=== PATIENT | male | born 1950 | race Caucasian/White ===

== ENCOUNTER 2023-05-09 13:10 | Outpatient (CLI) | payer MEDICARE, BC, SELFPAY | END 2023-05-09 13:11 | disposition home or self-care (01) | PROVIDERS: PCP Internal Medicine; Visit Provider Internal Medicine | DX: R53.83 Other fatigue (principal); I10 Essential (primary) hypertension; E78.5 Hyperlipidemia, unspecified; Z12.5 Encounter for screening for malignant neoplasm of prostate | CPT/HCPCS: 80053; 80061; 84153 ==

== ENCOUNTER 2024-06-27 12:35 | Outpatient (CLI) | payer MEDICARE, BC, SELFPAY ==
--- OUTSIDE RECORDS SUMMARY | 2024-06-30 19:36 | XMS_ITS | Clinical Summary ---
Author Organization [employer] [facility] Address [place], [place] [address] Care Team Providers Care Fabric Coating Supervisor Name Role Phone Durga Del Valle MD Primary Care Provider [phone] Allergies Active Allergy Reactions Criticality Noted Date Comments Fish Containing Products Diarrhea Low 07/07/2022 Peanut Butter Flavor Diarrhea Low 07/07/2022 Sunlight Rash 08/21/2018 Itchy, looks like poison frida Medications Medication Sig Dispensed Refills Start Date End Date Status aspirin (ECOTRIN) 81 mg enteric coated tablet Take 1 tablet by mouth once daily with a meal. 0 08/18/2015 Active nitroglycerin (NITROSTAT) 0.[address] 0.4 mg under the tongue every 5 minutes if needed. 07/23/2013 Active clopidogrel (PLAVIX) 75 mg tabletIndications:Hea rt disease Take 1 tablet by mouth once daily. 90 tablet 3 08/21/2018 Active lisinopril (PRINIVIL; ZESTRIL) 5 mg tabletIndications:Hea rt disease,Essential hypertension Take 1 tablet by mouth once daily. 90 tablet 3 08/21/2018 Active metoprolol tartrate (LOPRESSOR) 25 mg tabletIndications:Hea rt disease,Essential hypertension Take 1 tablet by mouth 2 times daily. 180 tablet 3 08/21/2018 Active HYDROcodone-acetamino phen, 7.5-325 mg, (NORCO 7.5-325) 7.5-325 mg per tabletIndications:Chr onic bilateral low back pain, with sciatica presence unspecified,DDD (degenerative disc disease), lumbar,Pain medication agreement Take up to 2 tablets PO twice daily. Continue wean to 3 tabs total daily this month. 120 tablet 04/09/2019 Active albuterol HFA (PRO-AIR; VENTOLIN; PROVENTIL) 90 mcg/actuation inhaler Inhale 2 Puffs by mouth every 6 hours if needed (bronchospasm). Active fluticasone propion-salmeteroL (Advair HFA) 115-21 mcg/actuation inhaler Inhale 2 Puffs by mouth two times daily. Active atorvastatin (LIPITOR) 10 mg tablet Take 4 Tablets (40 mg) by mouth at bedtime. 0 02/03/2023 Active Active Problems Problem Noted Date Diagnosed Date Pneumonia 01/22/2023 Respiratory failure with hypoxia 01/22/2023 Tobacco abuse 08/18/2018 Hypercholesteremia 08/18/2015 Hypertension 08/18/2015 Heart disease 08/18/2015 Overview (08/18/2015): 2 CT, 2011 with 1 stent and Aug 2013 4 stents. On plavix. GERD without esophagitis 08/18/2015 Ankle arthritis 08/18/2015 Cervical arthritis 08/18/2015 DDD (degenerative disc disease), lumbar 08/18/19 16 Overview (08/18/2015): Lumbar MRI done at [facility] December 2014. Multiple findings including L4-5 disc bulge and L5-S1 disc bulge with foraminal narrowing and impingement. Cervical spondylarthritis 08/30/2014 NSTEMI (non-ST elevated myocardial infarction) 0 08/20/2014 DJD (degenerative joint disease), multiple sites 04/19/2014 Overview (08/18/2018): Overview: chronic degenerative shoulder pain, ankle DJD GERD (gastroesophageal reflux disease) 3 Essential (primary) hypertension 07/23/2013 Anxiety 11/17/2012 CAD (coronary artery disease) 11/17/2012 Overview (08/18/2018): Overview: s/p PTCA single stent to [facility] (11/2012) Hyperlipidemia with target LDL less than 70 12/2012 Overview (08/18/2018): Overview: Hyperlipidemia LDL goal < 70 Tobacco use 08/06/2012 Gout 01/27/2012 Encounters Date Type Department Care Team Description 05/09/2024 1:15 PM CDT Office Visit [facility] [address] [place] [phone] Beth Jain, TANK BUILDER HELPER, TOUR COUNSELOR Derm Problem 05/09/2024 Travel from Last 3 Months Immunizations Name Administration Dates Next Due COVID-19 vaccine (Pfizer-Bio NTech 30mcg/0.3mL) 12YO+ BIVALENT PF, MDV 07/26/2022 COVID-19 vaccine (Pfizer-Bio NTech 30mcg/0.3mL) PF, MDV 11/24/2021,07/15/2021 DTP 10/07/1988 Influenza, High-dose Quadriv alent Inactivated 08/04/2022,05/21/2021,07/03/2020 Influenza, IIV3 (Age 6-35 mos) 07/01/2011 Oral Polio Vaccine 10/07/1988 Pneumococcal Poly,23-Valent (Pneumovax) 01/19/20 23 Pneumococcal conj 13-Valent (Prevnar 13) 022 Td (Age >=7 Years) 01/06/1999 Tdap 01/18/2023,07/01/2011,02/22/2011 Family History Medical History Relation Name Comments Good Health Brother Heart Disease Brother 6 stents Down syndrome Daughter Coronary artery disease Father Diabetes Father Heart Disease Father Other Mother Lupus Good Health Sister 1 Good Health Sister 2 ADD / ADHD Son Bipolar disorder Son Anesthesia Problem No Family History Asthma No Family History Cancer-breast No Family History Cancer-colon No Family History Cancer-ovarian No Family History Cancer-prostate No Family History Hypertension No Family History Stroke No Family History Relation Name Status Comments Brother Alive Daughter Alive Father Alive CT in 2017 Maternal Grandfather Maternal Grandmother Mother (Age 68) Paternal Grandfather Paternal Grandmother (Age 97) Sister 1 Alive Sister 2 Alive Son Alive Social History Tobacco Use Types Packs/Day Years Used Date Smoking Tobacco: Former Cigarettes Q uit: 1967 Smokeless Tobacco: Former Chew Alcohol Use Standard Drinks/Week Comments Yes 0 (1 standard drink = 0.6 oz pur e alcohol) 1-2/day- vodka PHQ-2 Answer Date Recorded PHQ-2 Score 0 10/17/2018 Sex and Gender Information Value Date Recorded Sex Assigned at Not on file Gender Identity Not on file Sexual Orientation Not on file Obstetrics History Last Filed Vital Signs Vital Sign Reading Time Taken Comments Blood Pressure 122/78 05/09/2024 1:10 PM CDT Pulse 74 05/09/2024 1:10 PM CDT Temperature 36.1 ??C (97 ??F) 05/09/2024 1:10 PM CDT Respiratory Rate 14 05/09/2024 1:10 PM CDT Oxygen Saturation 96% 05/09/2024 1:10 PM CDT Inhaled Oxygen Concentration - - Weight 99.3 kg (219 lb) 05/09/2024 1:10 PM CDT Height 175.3 cm (5' 9) 05/09/2024 1:10 PM CDT Body Mass Index 32.34 05/09/2024 1:10 PM CDT Plan of Treatment Health Maintenance Due Date Last Done Comments Colonoscopy through age [address] (for lung CA) ag e 50-80 2002 Zoster (shingles) series for age 50+ (1 of 2) 2002 AAA screening age 65-74 2017 Medicare Wellness for age 65+ 08/22/2019 08/21/2018 Depression screening for age 12+ 03/08/2020 03/08/2019, 08/25/2018, 08/21/2018 COVID-19 vaccine series (2023- season) 2024 09/06/2023, 07/26/2022, 11/24/2021, Additional history exists Influenza for age 65+ 04/15/2024 08/04/2022 , 05/21/2021, 07/03/2020 BMI (ht and wt on same day) for age 18+ 05/09/2025 05/09/2024, 02/03/2023, 04/02/2019, Additional history exists Lipids for age 45-75 10/11/2027 10/11/2022, 08/21/2018, 08/21/2018 Tetanus booster 01/18/2033 01/18/2023, 06/15, 02/22/2011, Additional history exists Hepatitis C screening for ag e 18-79 Completed 08/21/2018 Pneumococcal series for age 65+ Completed , 09/17/2021 Tdap Completed 01/18/2023, 06/15, 02/22/2011 Procedures Procedure Name Priority Date/Time Associated Diagnosis Comments LIPID PANEL Today 10/11/2022 9:50 AM SECURITY ESCORT Mixed hyperlipidemia ANTI HCV Routine 08/21/2018 11:35 AM SECURITY ESCORT Medicare annual wellness visit, initial from Last 3 Months or Most Recently Relevant to Health Maintenance Results * (ABNORMAL) LIPID PANEL (10/11/2022 9:50 AM SECURITY ESCORT) CHOLESTEROL,TOTAL 134 <200 mg/dL 10/11/2022 10:[address] [facility] TRIGLYCERIDES 283(H) 10 - 150 mg/dL 10/11/2022 10:[address] [facility] HDL CHOLESTEROL 26(L) >40 mg/dL 10:53 AM [facility] CHOL/HDL RATIO 5.15(H) 0.00 - 5.00 10/11/2022 10:53 AM [facility] VLDL CHOLESTEROL CUY 57(H) 0 - 30 mg/dL 10/11/2022 10:53 AM [facility] PATIENT STATUS FASTING 10/11/2022 10:53 AM [facility] LDL CHOLESTEROL CUY 47 <100 mg/dL 10/11/2022 10:53 AM [facility] Blood BLOOD SPECIMEN / Unknown Venipuncture / Unknown 10/11/2022 9:50 AM SECURITY ESCORT 10/11/2022 9:55 AM SECURITY ESCORT Marina Mendoza NP CHEMISTRY [facility] [address] [place] [address], * ANTI HCV (08/21/2018 11:35 AM SECURITY ESCORT) HEPATITIS C ANTIBODY Non-React merced Non-React merced 08/22/2018 3:46 AM SECURITY ESCORT [facility] Comment:Antibodies to HCV no t detected; does not exclude the possibility of exposure to HCV. Blood BLOOD SPECIMEN / Unknown Venipuncture / Unknown 08/21/2018 11:35 AM SECURITY ESCORT 08/21/2018 11:36 AM SECURITY ESCORT Brent Ruiz MD SEND OUTS [facility] [address] [place] [address], [place] from Last 3 Months or Most Recently Relevant to Health Maintenance Advance Directives * Full Code (Latest Code Status on File) Date Activated Date Inactivated Comments 01/22/2023 9:58 AM 01/24/2023 12:22 PM Question Answer Comments Code Status Discussion: Reviewed Preferences Care Teams Fabric Coating Supervisor Relationship Specialty Start Date End Date Durga Del Valle MD [address] [facility] [place] [address] PCP - General Family Practice 01/04/19
--- OUTSIDE RECORDS SUMMARY | 2024-06-30 19:36 | XMS_ITS | Clinical Summary ---
Author Organization [employer] Address [address] [facility] [address] Care Team Providers Care Powertrain Control Systems Engineer Name Role Phone Jude Bazan MD Primary Care Provider [phone] Marina Mendoza APRN,[facility] Unavailable [phone] Vaibhav Gonzalez MD Unavailable [phone] Allergies Active Allergy Reactions Criticality Noted Date Comments Fish Diarrhea Low 07/07/2022 Peanut Butter Flavor Diarrhea Low 07/07/2022 Medications Medication Sig Dispensed Refills Start Date End Date Status metoprolol tartrate 25 mg oral tablet Take 1 Tablet (25 mg) by mouth in the morning and 1 Tablet (25 mg) in the evening. Active lisinopriL 5 mg oral tablet Take 1 Tablet (5 mg) by mouth in the morning. Active HYDROcodone-acetami nophen 7.5-325 mg oral tablet Take 2 Tablets by mouth every 6 hours if needed for moderate pain or severe pain. Active atorvastatin (LIPITOR) 40 mg oral TabletIndications:N STEMI (non-ST elevated myocardial infarction) (HCC) Take 1 Tablet (40 mg) by mouth at bedtime. 90 Tablet 3 07/09/2022 Active clopidogreL (PLAVIX) 75 mg oral TabletIndications:N STEMI (non-ST elevated myocardial infarction) (HCC) Take 1 Tablet (75 mg) by mouth in the morning. 90 Tablet 3 07/10/2022 Active nitroglycerin (NITROSTAT) 0.4 mg sublingual Tablet, SublingualIndicatio ns:NSTEMI (non-ST elevated myocardial infarction) ([facility]) 1 Tablet (0.4 mg) by sublingual route every 5 minutes if needed for angina (Chest pain). 25 Tablet 3 07/09/2022 Active ADVAIR HFA 115-21 mcg/actuation inhalation HFA Aerosol Inhaler 1 Puff by inhalation route if needed. 06/15/2022 Active cholecalciferol, vitamin D3, 2,000 unit oral Cap Take 1 Capsule (2,000 Units) by mouth. Active aspirin (CHILDREN'S ASPIRIN) 81 mg oral Tablet, Chewable Chew and Swallow 1 Tablet (81 mg) by mouth if needed each day (if ever have plavix on hold). 0 09/09/2023 Active Active Problems Problem Noted Date Diagnosed Date S/P PTCA (percutaneous transluminal coronary ang ioplasty) 07/08/2022 Overview: 1 stent in 2011 and 4 stents in 2013 Dupuytren's contracture of both hands 07/08/2022 NSTEMI (non-ST elevated myocardial infarction) 1 09/06/2021 CAD (coronary artery disease) 07/07/2022 Overview: 07/08/22 SÁNCHEZ ISR mLAD (2.5 x 48 mm Synergy) 1 stent in 2011 and 4 stents in 2013 HTN (hypertension) 07/07/2022 HLD (hyperlipidemia) 07/07/2022 Arthritis 07/07/2022 Family History Medical History Relation Name Comments Coronary artery disease Father Lupus (SLE) Mother Relation Name Status Comments Father Mother Social History Tobacco Use Types Packs/Day Years Used Date Smoking Tobacco: Former Cigarettes Q uit: 08/17/2021 Smokeless Tobacco: Former Tobacco Cessation:Counseling Given: Not Answered Alcohol Use Standard Drinks/Week Comments Not Currently 0 (1 standard drink = 0.6 oz pur e alcohol) Depression (PHQ-9) Answer Date Recorded Last PHQ-9 Score Not on file 07/19/2022 Thoughts of self harm Not on file 07/19/2022 Sex and Gender Information Value Date Recorded Sex Assigned at Not on file Gender Identity Not on file Sexual Orientation Not on file Last Filed Vital Signs Vital Sign Reading Time Taken Comments Blood Pressure 126/64 09/09/2023 1:01 PM UNION CONTRACT REPRESENTATIVE Pulse 64 09/09/2023 1:01 PM UNION CONTRACT REPRESENTATIVE Temperature 36.7 ??C (98 ??F) 07/09/2022 7:37 AM UNION CONTRACT REPRESENTATIVE Respiratory Rate 20 09/09/2023 1:01 PM UNION CONTRACT REPRESENTATIVE Oxygen Saturation 94% 08/12/2022 12: 58 PM UNION CONTRACT REPRESENTATIVE Inhaled Oxygen Concentration - - Weight 100.4 kg (221 lb 6.4 oz) 09/09/2023 1:01 PM UNION CONTRACT REPRESENTATIVE Height 175.3 cm (5' 9) 09/09/2023 1:01 PM UNION CONTRACT REPRESENTATIVE Body Mass Index 32.7 09/09/2023 1:01 PM UNION CONTRACT REPRESENTATIVE Plan of Treatment Health Maintenance Due Date Last Done Comments Hepatitis C Testing 1952 Depression Screening 1964 Medicare Annual Visit [address] Colonography 1997 Colonoscopy 1997 Colorectal Cancer Screening 1997 Fecal Immunochemical DNA Test (FIT-DNA) 1997 Fecal Immunochemical Test (FIT) 1997 Respiratory Syncytial Virus (RSV) Vaccine (1 - Risk 60-74 years 1-dose series) 2012 Varicella Zoster Sequential (2 of 3) 10/07/2014 08/12/2014 COVID-19 Vaccine ( season) 2024 09/06/2023, 07/26/2022, 11/24/2021, Additional history exists Influenza Vaccine (#1) 2024 , 08/04/2022, 05/21/2021, Additional history exists Lipids Standard 07/07/2027 07/07/2022 DTaP/Tdap/Td Vaccines (6 - Td or Tdap) 01/18/2033 01/18/2023, 07/01/2011, 02/22/2011, Additional history exists Pneumococcal Vaccine (65+ Years) Completed 01/18/2023, 09/17/2021 HIB Vaccines Aged Out No longer eligi ble based on patient's age to complete this topic HPV Vaccines Aged Out No longer eligi ble based on patient's age to complete this topic Hepatitis A Vaccines Aged Out No long er eligible based on patient's age to complete this topic Hepatitis B Vaccines Aged Out No long er eligible based on patient's age to complete this topic Meningococcal Vaccines Aged Out No lo nger eligible based on patient's age to complete this topic Procedures Procedure Name Priority Date/Time Associated Diagnosis Comments LIPID PANEL Routine 07/07/2022 11:37 PM UNION CONTRACT REPRESENTATIVE from Last 3 Months or Most Recently Relevant to Health Maintenance Results * (ABNORMAL) LIPID PANEL (07/07/2022 11:37 PM UNION CONTRACT REPRESENTATIVE) Cholesterol 159 <200 mg/dL 07/08/2022 12:01 AM UNION CONTRACT REPRESENTATIVE [facility] Triglycerides 246(H) 30 - 150 mg/dL 07/08/2022 12:01 AM UNION CONTRACT REPRESENTATIVE [facility] Cholesterol, LDL (Calculated) 82 0 - 159 mg/dL 07/08/2022 12:01 AM UNION CONTRACT REPRESENTATIVE [facility] Cholesterol, HDL 28(L) >40 mg/dL 07/08/20 22 12:01 AM UNION CONTRACT REPRESENTATIVE [facility] Cholesterol, vLDL 49 mg/dL 022 12:01 AM [facility] Blood VENOUS BLOOD / Unknown Venipuncture / Unknown 07/07/2022 11:37 PM UNION CONTRACT REPRESENTATIVE 07/07/2022 11:41 PM UNION CONTRACT REPRESENTATIVE Caryl Colon MD LAB CHEMISTRY [facility] [address] [place] [phone] from Last 3 Months or Most Recently Relevant to Health Maintenance Advance Directives * Full Code (Latest Code Status on File) Date Activated Date Inactivated Comments 07/07/2022 11:13 PM 07/09/2022 2:32 PM Care Teams Powertrain Control Systems Engineer Relationship Specialty Start Date End Date Jude Bazan MD [address] [place] [phone] PCP - General Internal Medicine 07/08/22 Marina Mendoza APRN,COAT AGENT [address] [place] [place] [phone] RN Nurse Practitioner Family 07/09/22 Vaibhav Gonzalez MD [address] [place] [phone] Family Medicine 07/09/22 Additional Source Comments PLEASE NOTE: Replies to this message will not be received.[facility]
== END 2024-06-27 12:36 | disposition home or self-care (01) ==
LOC: NFLDREF 06-30 19:34
PROVIDERS: PCP Internal Medicine; Referring Provider Internal Medicine; Visit Provider Internal Medicine
DX: K21.9 Gastro-esophageal reflux disease without esophagitis (principal); E78.5 Hyperlipidemia, unspecified; I10 Essential (primary) hypertension; M65.30 Trigger finger, unspecified finger; R53.83 Other fatigue; I25.10 Atherosclerotic heart disease of native coronary artery without angina pectoris; Z12.5 Encounter for screening for malignant neoplasm of prostate
CPT/HCPCS: 80053; 80061; G0103